=== PATIENT | female | born 1960 | race Caucasian/White ===

== ENCOUNTER 2019-05-14 19:12 | Emergency (ER) | payer BC, SELFPAY ==
--- NOTE | ~2019-05-14 | XR_ITS ---
EXAMINATION: XR chest 2V EXAM DATE: 05/14/2019 20:05 INDICATION: Cough, fever, shortness of breath. TECHNIQUE: Frontal and lateral projections of the chest obtained and reviewed. There is no prior gail dy for comparison. FINDINGS: Left midlung zone granuloma. The lungs are otherwise clear. Moderate chronic hyperinflation . There are no pleural effusions. The cardiomediastinal silhouette is within normal limits. There i s no pneumothorax suspected. The bones and soft tissues are unremarkable. IMPRESSION: No acute cardiopulmonary findings. Reviewed, dictated and finalized at location A. 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
[2019-05-14 20:00] VITALS: BP 162/90; PULSE 93; RESP 20; TEMP 37.6; O2SAT 95
[2019-05-14 20:24] LABS: Influenza Control Valid (Valid)
--- NOTE | 2019-05-14 20:51 | ED.URI ---
HPI - URI/Sore Throat General Chief Complaint: Upper Respiratory Infection Stated Complaint: cough,shortness of breath Time Seen by Provider: 05/14/19 20:30 Source: patient Mode of arrival: ambulatory Limitations: no limitations History of Present Illness HPI Narrative: Lila is a 59-year-old female patient. She presents ambulatory to the emergency room. Her main complaint is a nonproductive cough. She has been wheezing. She is currently a a smoker. She smokes half a pack of cigarettes a day. She has a low-grade temperature of 99.7? F. she has some nasal congestion. No abdominal pain. No chest pain as such. Her ribs hurt upon coughing. No history of vomiting or diarrhea. MD elicited complaint: fever, cough and nasal congestion Onset (ago): day(s) ( Two days) Consistency: intermittent Severity: moderate Exacerbating factors: other ( smoking) Relieving factors: nothing Context: other ( no recent travel. No close sick contacts.) Associated symptoms: fever and nasal congestion Treatments prior to arrival: none Related Data Home Medications Medication Instructions Recorded Confirmed albuterol sulfate [ProAir HFA] 2 puff INHALATION Q4-5H PRN 03/05/19 05/14/19 alprazolam 0.5 mg PO Q6-12H PRN 03/05/19 05/14/19 levothyroxine 100 mcg PO DAILY 03/05/19 05/14/19 Allergies Allergy/AdvReac Type Severity Reaction Status Date / Time hydrocodone Allergy Intermediate rash, Verified 07/28/17 11:48 nausea codeine Allergy Unknown Verified 07/16/17 14:14 morphine Allergy Unknown Verified 07/16/17 14:14 oxycodone Allergy Unknown Verified 07/16/17 14:14 Review of Systems Review of Systems: All systems reviewed & are unremarkable except as noted in HPI and below Constitutional: Constitutional: Reports as per HPI, Reports no additional constitutional complaints, Denies chills and Reports fever(s) Eyes: Eyes: Reports as per HPI, Reports no additional eye complaints and Denies change in vision ENT: Reports system reviewed and no additional complaints, except as documented and Reports nasal congestion Cardiovascular: Cardiovascular: Reports no additional cardiovascular complaints, Denies chest pain and Denies radiating jaw, neck or arm pain Respiratory: Respiratory: Reports as per HPI, Reports no additional respiratory complaints and Reports cough Gastrointestinal: Gastrointestinal: Reports as per HPI, Reports no additional gastrointestinal complaints, Denies abdominal pain, Denies diarrhea, Denies nausea and Denies vomiting Genitourinary: Genitourinary: Reports no additional female genitourinary complaints, Denies hematuria and Denies dysuria Musculoskeletal: Musculoskeletal: Reports no additional musculoskeletal complaints and Denies back pain Integumentary/Breasts: Skin/Breast: Reports system reviewed and no additional complaints, except as docu, Denies erythema and Denies rash Neurologic: Reports system reviewed and no additional complaints, except as documented, Denies vertigo, Denies dizziness, Denies syncope, Denies focal weakness, Denies numbness and Denies weakness Psychiatric: Psychiatric: Reports no additional psychiatric complaints and Reports anxiety Endocrine: Endocrine: Reports no additional endocrine complaints, Denies polydipsia and Denies polyuria Comments: History of hypothyroidism Allergic/Immunologic: Allergic/Immunologic: Reports no additional allergic/immunologic complaints, Denies lip swelling and Denies tongue swelling PMFSH Past Medical History Medical History (Updated 05/14/19 @ 21:44 by Wilder Victor MD) Anxiety Hypothyroidism Surgical History Surgical History (Updated 05/14/19 @ 20:57 by Wilder Victor MD) History of section Hx of cholecystectomy Social History Social History (Updated 05/14/19 @ 20:58 by Wilder Victor MD) Smoking packs per day: 0.5 Smoking cigarettes per day: 10.0 Years smoked: 20 Smoking pack-years: 10.00 Smoking status: Cur
[2019-05-14] MEDS: IPRATROPIUM 0.5 MG/ALBUTEROL SULFATE 2.5 MG AMPUL.NEB 3 ML INHALATION (21:14)
[2019-05-14 21:15] VITALS: PULSE 89
[2019-05-14 21:20] LABS: Hematocrit 38.3 % (35.0-49.0); Hemoglobin 13.4 g/dL (12.0-15.0); Mean Corpuscular Hemoglobin 32.2 pg (27.0-31.0); Mean Corpuscular Volume 92.1 fL (78.0-102.0); Mean Platelet Volume 9.1 fl (9.2-11.8); Platelet Count Result 214 K/mm3 (150-420); Red Blood Count 4.16 M/mm3 (4.20-5.40); White Blood Count 6.9 K/mm3 (4.8-10.8)
[2019-05-14 21:25] VITALS: PULSE 97; RESP 19
[2019-05-14 21:26] LABS: Total Cells Counted 100
[2019-05-14 21:30] LABS: Anion Gap 11.9 mmol/L (7-16); Blood Urea Nitrogen 10 mg/dL (7-18); Calcium 8.4 mg/dL (8.5-10.1); Carbon Dioxide 26 mmol/L (21-32); Chloride 98 mmol/L (98-108); Estimated Glomerular Filt Rate > 60; Glucose 92 mg/dL (70-99); Osmolality Calculated 273 mOsm/kg (285-295); Potassium 3.9 mmol/L (3.5-5.1); Sodium 132 mmol/L (136-145)
[2019-05-14 21:36] LABS: Band Neutrophils Percent 0 % (0-6); Basophils Absolute Manual 0.06 K/mm3 (0-0.1); Basophils Percent Manual 1 % (0-1); Eosinophils Percent Manual 3 % (1-6); Lymphocytes Absolute Manual 1.58 K/mm3 (1.1-4.5); Lymphocytes Percent Manual 23 % (18-44); Monocytes Absolute Manual 1.17 K/mm3 (0.1-0.90); Monocytes Percent Manual 17 % (3-9); Neutrophils Absolute Manual 3.86 K/mm3 (1.7-7.2); Neutrophils Percent Manual 56 % (46-73)
[2019-05-14 21:37] LABS: Platelet Estimate Adequate (Adequate)
[2019-05-14] MEDS: AZITHROMYCIN 250 MG TABLET 500 MG PO (21:59)
[2019-05-14 22:02] VITALS: BP 128/64; O2SAT 99
== END 2019-05-14 22:07 | disposition home or self-care (01) ==
PROVIDERS: Emergency Provider Surgery; PCP Physician Assistant
DX: J40 Bronchitis, not specified as acute or chronic (principal)
CPT/HCPCS: 36415; 71046; 80048; 85025; 87804; 94640; 99283; A9270

== ENCOUNTER 2019-07-23 12:56 | Emergency (ER) | payer BC, SELFPAY ==
--- NOTE | ~2019-07-23 | XR_ITS ---
EXAMINATION: XR hand LT min 3V INDICATION: Left hand pain TECHNIQUE: Three views of the left hand are obtained. COMPARISON: None available FINDINGS: There is dorsal soft tissue swelling of the hand overlying the metacarpals. No fracture, di slocation, or subluxation is identified. Mild osteoarthritis is noted at the first carpometacarpal lesvia int. IMPRESSION: 1. Dorsal soft tissue swelling of the hand without underlying osseous abnormality. Reviewed, dictated and finalized at location A. IMPRESSION: 1. Dorsal soft tissue swelling of the hand without underlying osseous abnormali ty.
--- NOTE | ~2019-07-23 | XR_ITS ---
EXAMINATION: XR wrist LT min 3V DATE: 07/23/2019 13:38 INDICATION: Left wrist pain TECHNIQUE: Posteroanterior, ulnar deviation, oblique, and lateral views of the left wrist were obtain ed. COMPARISON: 03/17/2018 FINDINGS: There is no fracture, dislocation, or subluxation. There is mild osteoarthritis of the firs t carpometacarpal joint. Dorsal soft tissue swelling is noted overlying the metacarpals. IMPRESSION: 1. No acute osseous abnormality. Reviewed, dictated and finalized at location A.
[2019-07-23 13:18] VITALS: BP 112/66; PULSE 79; RESP 18; TEMP 36.9; O2SAT 97
--- NOTE | 2019-07-23 13:28 | ED.UPPEXIN ---
HPI - Extremity Injury (Upper) General Chief Complaint: Extremity Injury, Upper Stated Complaint: injury to L hand Source: patient Mode of arrival: ambulatory Limitations: no limitations History of Present Illness HPI narrative: 59-year-old was moving a refrigerator at 12:30 p.m. today. Her left hand was trapped between a refrigerator in the counter resulting in bleeding and pain in her wrist and hand. She states she is allergic to all pain medications. She declines ice. Immunizations up to date. Related Data Home Medications Medication Instructions Recorded Confirmed albuterol sulfate [ProAir HFA] 2 puff INHALATION Q4-5H PRN 03/05/19 07/23/19 alprazolam 0.5 mg PO Q6-12H PRN 03/05/19 07/23/19 levothyroxine 100 mcg PO DAILY 03/05/19 07/23/19 cephalexin 500 mg PO DAILY 07/23/19 07/23/19 Allergies Allergy/AdvReac Type Severity Reaction Status Date / Time hydrocodone Allergy Intermediate rash, Verified 07/28/17 11:48 nausea codeine Allergy Unknown Verified 07/16/17 14:14 morphine Allergy Unknown Verified 07/16/17 14:14 oxycodone Allergy Unknown Verified 07/16/17 14:14 Review of Systems Constitutional: Constitutional: Denies chills and Denies fever(s) Respiratory: Respiratory: Denies cough and Denies dyspnea Musculoskeletal: Musculoskeletal: Reports no additional musculoskeletal complaints Neurologic: Reports numbness PMFSH Past Medical History Medical History Anxiety Hypothyroidism Surgical History Surgical History History of section Hx of cholecystectomy Social History Social History Smoking packs per day: 0.5 Smoking cigarettes per day: 10.0 Years smoked: 20 Smoking pack-years: 10.00 Smoking status: Current every day smoker Tobacco type: cigarettes Substance use: never Exam Const: Orientation/consciousness: patient oriented x3 Skin: Other: Skin tear dorsum of left hand Extrem: Other: tenderness over the proximal dorsal hand and distal wrist. Pain with flexion and extension. Neurovascular intact Course Course Emergency Course: Wound was cleansed and Steri-Strips applied to the skin tear negative x-rays reported the patient. Vital Signs Vital signs: Vital Signs Temperature 36.9 C 07/23/19 13:18 Pulse Rate 79 07/23/19 13:18 Respiratory Rate 18 07/23/19 13:18 Blood Pressure 112/66 07/23/19 13:18 Pulse Oximetry 97 07/23/19 13:18 Temperature 36.9 C 07/23/19 13:18 Pulse Rate 79 07/23/19 13:18 Respiratory Rate 15 07/23/19 14:55 Blood Pressure 112/66 07/23/19 13:18 Pulse Oximetry 100 07/23/19 14:55 MDM - Extremity Injury (Upper) ABG Data Interpretation: No acute osseous abnormality. Imaging Data Radiologist's impression: 1. Dorsal soft tissue swelling of the hand without underlying osseous abnormality. Discharge Plan Discharge Clinical Impression: Contusion of hand, left, Skin tear of hand without complication Patient Disposition: Home, Self-Care Condition: Stable Instructions: Antibiotic Form, Wrist Injury (ED), Laceration (ED) Prescriptions: No Action levothyroxine 100 mcg tablet 100 mcg PO DAILY RF: 0 alprazolam 0.5 mg tablet 0.5 mg PO Q6-12H PRN (Reason: Anxiety) RF: 0 albuterol sulfate [ProAir HFA] 90 mcg/actuation HFA aerosol inhaler 2 puff INHALATION Q4-5H PRN (Reason: Shortness Of Breath) RF: 0 cephalexin 500 mg capsule 500 mg PO DAILY RF: 0 Follow-up/Referrals: Isaak,MIC Krueger [Primary Care Provider] - Time of Disposition: 14:54 Discharge Date/Time: 07/23/19 14:56
[2019-07-23 14:55] VITALS: RESP 15; O2SAT 100
== END 2019-07-23 14:56 | disposition home or self-care (01) ==
PROVIDERS: Emergency Provider Family Medicine; PCP Physician Assistant
DX: S60.222A Contusion of left hand, initial encounter (principal); S61.412A Laceration without foreign body of left hand, initial encounter; W22.8XXA Striking against or struck by other objects, initial encounter
CPT/HCPCS: 73110; 73130; 99282; 99283

== ENCOUNTER 2020-01-20 17:37 | Outpatient (CLI) | payer BC, SELFPAY ==
--- NOTE | ~2020-01-20 | XR_ITS ---
XR hand RT min 3V DATE: 01/20/2020 17:52 INDICATION: Dog bite of fifth digit. Pain. TECHNIQUE: 3 views COMPARISON: None FINDINGS: There is proximal soft tissue swelling of the fifth digit. No radiopaque foreign body or simpson bcutaneous emphysema. No fracture or dislocation, periosteal reaction or bone destruction. There is mild osteoarthritic change at the first carpometacarpal joint and multiple interphalangeal j oints. 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
== END 2020-01-20 17:38 | disposition home or self-care (01) ==
LOC: CHSIMG 17:39
PROVIDERS: PCP Physician Assistant; Visit Provider Physician Assistant
DX: M79.641 Pain in right hand (principal)
CPT/HCPCS: 73130

== ENCOUNTER 2020-04-24 15:05 | Emergency (ER) | payer BC, SELFPAY ==
--- NOTE | ~2020-04-24 | XR_ITS ---
EXAMINATION: XR chest 1V portable DATE: 04/24/2020 16:18 INDICATION: Cough and shortness of breath TECHNIQUE: Portable AP upright view of the chest was obtained. COMPARISON: Chest radiograph dated 05/14/2019 FINDINGS: Unchanged minimal biapical pleural-parenchymal scarring. Calcified nodules in the left midlung consis tent with old granulomatous disease. No other airspace opacities, pulmonary edema, pleural effusion o r pneumothorax. The cardiomediastinal silhouette is normal. Cholecystectomy clips in right upper quad rant. IMPRESSION: 1. No acute cardiopulmonary disease. Reviewed, dictated and finalized at location A. 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
[2020-04-24 15:10] VITALS: BP 150/87; PULSE 79; RESP 16; TEMP 36.8; O2SAT 96
[2020-04-24] MEDS: ALBUTEROL SULFATE (*SP) INHALER 4 PUFF INHALATION (15:48)
[2020-04-24 15:49] VITALS: PULSE 80; RESP 16
[2020-04-24 15:56] VITALS: PULSE 86; RESP 16
[2020-04-24 16:30] LABS: SARS-CoV-2 Ag Negative (Negative)
[2020-04-24 16:48] LABS: Influenza Control Valid (Valid)
--- NOTE | 2020-04-24 16:50 | ED.URI ---
HPI - URI/Sore Throat General Chief Complaint: Upper Respiratory Infection Stated Complaint: sore throat,cough,headache,a little SOB Source: patient Mode of arrival: ambulatory Limitations: no limitations History of Present Illness HPI Narrative: Pt has been having sore throat body aches and cough. She states this has been going on a couple of days. She has no fevers, but does not feel well. No abdominal sxs. MD elicited complaint: fever and cough Consistency: constant Able to tolerate fluids by mouth: Yes Exacerbating factors: nothing Relieving factors: nothing Associated symptoms: headache, sore throat and shortness of breath Related Data Home Medications Medication Instructions Recorded Confirmed albuterol sulfate [ProAir HFA] 2 puff INHALATION Q4-5H PRN 03/05/19 04/24/20 alprazolam 0.5 mg PO Q6-12H PRN 03/05/19 04/24/20 albuterol sulfate 1.25 mg INHALATION Q4H 04/24/20 04/24/20 levothyroxine 125 mcg PO DAILY 04/24/20 04/24/20 Allergies Allergy/AdvReac Type Severity Reaction Status Date / Time hydrocodone Allergy Intermediate rash, Verified 07/28/17 11:48 nausea codeine Allergy Unknown Verified 07/16/17 14:14 morphine Allergy Unknown Verified 07/16/17 14:14 oxycodone Allergy Unknown Verified 07/16/17 14:14 Review of Systems Constitutional: Constitutional: Reports fatigue and Reports weakness Eyes: Eyes: Reports no additional eye complaints ENT: Reports system reviewed and no additional complaints, except as documented Cardiovascular: Cardiovascular: Reports no additional cardiovascular complaints Respiratory: Respiratory: Reports no additional respiratory complaints Gastrointestinal: Gastrointestinal: Reports no additional gastrointestinal complaints Genitourinary: Genitourinary: Reports no additional female genitourinary complaints Musculoskeletal: Musculoskeletal: Reports no additional musculoskeletal complaints Integumentary/Breasts: Skin/Breast: Reports system reviewed and no additional complaints, except as docu Neurologic: Reports system reviewed and no additional complaints, except as documented Psychiatric: Psychiatric: Reports no additional psychiatric complaints Endocrine: Endocrine: Reports no additional endocrine complaints Hematologic/Lymphatic: Hematologic/Lymphatic: Reports no additional hematologic/lymphatic complaints Allergic/Immunologic: Allergic/Immunologic: Reports no additional allergic/immunologic complaints [facility] Past Medical History Medical History (Updated 04/24/20 @ 16:53 by Lashell Kennedy MD) Anxiety Hypothyroidism Surgical History Surgical History History of section Hx of cholecystectomy Social History Social History Smoking packs per day: 0.5 Smoking cigarettes per day: 10.0 Years smoked: 20 Smoking pack-years: 10.00 Smoking status: Current every day smoker Tobacco type: cigarettes Substance use: never Exam Const: General: no acute distress and alert Orientation/consciousness: patient oriented x3 HENMT: Head: normal to inspection Eyes: Conjunctivae: conjunctivae normal Pupils: Equal, round and reactive pupils present Neck: Neck: normal visual inspection Chest: Chest palpation & inspection: normal inspection of the chest Resp: Effort & Inspection: normal respiratory effort Auscultation: clear to auscultation bilaterally Cardio: Rate: regular rate Rhythm: regular rhythm GI: GI Palp: Yes Soft to palpation and No Tenderness to palpation present (GI) : General: Yes no CVA tenderness Back/Spine/Pelvis: Back: no CVA tenderness Skin: General skin exam: normal color Rashes: no rashes Neuro: General: patient oriented x3 and moves all extremities Extrem: General: normal to inspection Psych: Mental Status: mental status grossly normal Thought content: Yes Normal thought content presen
[2020-04-24 17:10] VITALS: PULSE 80; O2SAT 98
[2020-04-25 23:23] LABS: SARS-CoV-2 RNA PCR Negative
== END 2020-04-24 17:15 | disposition home or self-care (01) ==
PROVIDERS: Emergency Provider Emergency Medicine; PCP Physician Assistant
DX: J40 Bronchitis, not specified as acute or chronic (principal); Z20.822 Contact with and (suspected) exposure to COVID-19; F17.200 Nicotine dependence, unspecified, uncomplicated
CPT/HCPCS: 36415; 71045; 87426; 87804; 94640; 99283; A9270; C9803; U0003; U0005

== ENCOUNTER 2020-05-21 01:43 | Emergency (ER) | payer BC, SELFPAY ==
[2020-05-21 01:45] VITALS: BP 135/90; PULSE 85; RESP 18; TEMP 36.1; O2SAT 97
--- NOTE | 2020-05-21 02:01 | ED.DENTAL ---
HPI - Dental/Oral General Chief complaint: Dental/Oral Stated complaint: PAIN Time Seen by Provider: 05/21/20 01:45 Source: patient and family Mode of arrival: ambulatory History of Present Illness HPI Narrative: Patient states she was eating cereal about twenty minutes ago and noticed that she was swollen at the angle of her jaw on the left side. She had not noticed this prior to that time. Pain there is moderately severe she says. she has not taken anything for it at home. Severity: moderate Relieving factors: nothing Exacerbating factors: chewing Related Data Home Medications Medication Instructions Recorded Confirmed albuterol sulfate [ProAir HFA] 2 puff INHALATION Q4-5H PRN 03/05/19 05/21/20 alprazolam 0.5 mg PO Q6-12H PRN 03/05/19 05/21/20 albuterol sulfate 1.25 mg INHALATION Q4H 04/24/20 05/21/20 levothyroxine 100 mcg PO DAILY 04/24/20 05/21/20 Allergies Allergy/AdvReac Type Severity Reaction Status Date / Time hydrocodone Allergy Intermediate rash, Verified 07/28/17 11:48 nausea codeine Allergy Unknown Verified 07/16/17 14:14 morphine Allergy Unknown Verified 07/16/17 14:14 oxycodone Allergy Unknown Verified 07/16/17 14:14 Review of Systems Constitutional: Constitutional: Reports no additional constitutional complaints Eyes: Eyes: Reports no additional eye complaints ENT: Reports system reviewed and no additional complaints, except as documented Cardiovascular: Cardiovascular: Reports no additional cardiovascular complaints Respiratory: Respiratory: Reports no additional respiratory complaints Gastrointestinal: Gastrointestinal: Reports no additional gastrointestinal complaints Genitourinary: Genitourinary: Reports no additional female genitourinary complaints Musculoskeletal: Musculoskeletal: Reports no additional musculoskeletal complaints Integumentary/Breasts: Skin/Breast: Reports system reviewed and no additional complaints, except as docu Neurologic: Reports system reviewed and no additional complaints, except as documented Psychiatric: Psychiatric: Reports no additional psychiatric complaints Endocrine: Endocrine: Reports no additional endocrine complaints Hematologic/Lymphatic: Hematologic/Lymphatic: Reports no additional hematologic/lymphatic complaints Allergic/Immunologic: Allergic/Immunologic: Reports no additional allergic/immunologic complaints PMFSH Past Medical History Medical History Anxiety Hypothyroidism Surgical History Surgical History History of section Hx of cholecystectomy Family History Family History Mother Breast cancer CAD (coronary artery disease) Social History Social History Smoking packs per day: 0.5 Smoking cigarettes per day: 10.0 Years smoked: 20 Smoking pack-years: 10.00 Smoking status: Current every day smoker Tobacco type: cigarettes Substance use: never Exam Const: General: no acute distress Orientation/consciousness: patient oriented x3 HENMT: Ears: TM's normal bilaterally General nose exam: Normal external nose present and Normal nares present Face and sinus: normal facial exam Mouth: Yes Normal oral and palatal mucosa present (wears dentures. edentulous. no lesions on gums) and Yes moist mucous membranes Throat: posterior oropharynx normal Other: obvious swelling around tonsillar node on left Eyes: Conjunctivae: conjunctivae normal Neck: Neck: normal visual inspection Chest: Chest palpation & inspection: normal inspection of the chest Resp: Effort & Inspection: normal respiratory effort Auscultation: clear to auscultation bilaterally Cardio: Rate: regular rate Rhythm: regular rhythm GI: GI Palp: Yes Soft to palpation (nontender) Skin: General skin exam: normal color Neuro: Genera
[2020-05-21] MEDS: AMOXICILLIN 500 MG CAPSULE PO (02:04)
[2020-05-21 02:05] VITALS: BP 130/88; PULSE 80; RESP 18; O2SAT 97
== END 2020-05-21 02:10 | disposition home or self-care (01) ==
PROVIDERS: Emergency Provider Emergency Medicine; PCP Physician Assistant
DX: R59.1 Generalized enlarged lymph nodes (principal)
CPT/HCPCS: 99283; A9270

== ENCOUNTER 2020-06-23 13:43 | Emergency (ER) | payer BC, SELFPAY ==
[2020-06-23 14:45] VITALS: BP 154/101; PULSE 70; RESP 16; TEMP 36.7; O2SAT 98
[2020-06-23] MEDS: ONDANSETRON HCL ODT 4 MG TABLET PO (15:37)
[2020-06-23] MEDS: BACLOFEN 10 MG TABLET 20 MG PO (15:37)
[2020-06-23] MEDS: KETOROLAC 30 MG/ML VIAL (*BKC) IM (15:38)
--- NOTE | 2020-06-23 15:40 | ED.HA ---
HPI - Headache General Chief Complaint: Headache Stated Complaint: migraine Source: patient Mode of arrival: ambulatory Limitations: no limitations History of Present Illness HPI Narrative: Patient comes in with a headache on the right side of her head, ongoing since last pm. Pain is moderately severe, sharp, pounding and associated with some mild nausea. nothing has made this better or worse at home. Pain is ongoing. MD elicited complaint: headache Onset description: gradually Location: right Severity: moderate Quality & Timing: throbbing Exacerbating factors: exertion Context: occurred at rest Associated symptoms: none Related Data Home Medications Medication Instructions Recorded Confirmed alprazolam 0.5 mg PO Q6-12H PRN 03/05/19 06/23/20 albuterol sulfate 1.25 mg INHALATION Q4H 04/24/20 06/23/20 levothyroxine 100 mcg PO DAILY 04/24/20 06/23/20 Allergies Allergy/AdvReac Type Severity Reaction Status Date / Time hydrocodone Allergy Intermediate rash, Verified 07/28/17 11:48 nausea codeine Allergy Unknown Verified 07/16/17 14:14 morphine Allergy Unknown Verified 07/16/17 14:14 oxycodone Allergy Unknown Verified 07/16/17 14:14 Review of Systems Eyes: Eyes: Reports no additional eye complaints ENT: Reports system reviewed and no additional complaints, except as documented Cardiovascular: Cardiovascular: Reports no additional cardiovascular complaints Respiratory: Respiratory: Reports no additional respiratory complaints Gastrointestinal: Gastrointestinal: Reports no additional gastrointestinal complaints Genitourinary: Genitourinary: Reports no additional female genitourinary complaints Musculoskeletal: Musculoskeletal: Reports no additional musculoskeletal complaints Integumentary/Breasts: Skin/Breast: Reports system reviewed and no additional complaints, except as docu Neurologic: Reports system reviewed and no additional complaints, except as documented Psychiatric: Psychiatric: Reports no additional psychiatric complaints Endocrine: Endocrine: Reports no additional endocrine complaints Hematologic/Lymphatic: Hematologic/Lymphatic: Reports no additional hematologic/lymphatic complaints Allergic/Immunologic: Allergic/Immunologic: Reports no additional allergic/immunologic complaints [facility] Past Medical History Medical History (Updated 06/23/20 @ 16:13 by Marcos Jefferson MD) Anxiety Hypothyroidism Surgical History Surgical History History of section Hx of cholecystectomy Family History Family History Mother Breast cancer CAD (coronary artery disease) Social History Social History Smoking packs per day: 0.5 Smoking cigarettes per day: 10.0 Years smoked: 20 Smoking pack-years: 10.00 Smoking status: Current every day smoker Tobacco type: cigarettes Substance use: never Exam Const: General: no acute distress Orientation/consciousness: patient oriented x3 HENMT: Head: normal to inspection Ears: external ears normal and TM's normal bilaterally General nose exam: Normal external nose present Face and sinus: normal facial exam Mouth: Yes Normal oral and palatal mucosa present Throat: posterior oropharynx normal Eyes: Conjunctivae: conjunctivae normal Neck: Neck: normal visual inspection Chest: Chest palpation & inspection: normal inspection of the chest Resp: Effort & Inspection: normal respiratory effort Auscultation: clear to auscultation bilaterally Cardio: Rate: regular rate Rhythm: regular rhythm GI: GI Palp: Yes Soft to palpation (nontender) Skin: General skin exam: normal color Neuro: General: patient oriented x3 and moves all extremities Extrem: General: normal to inspection Psych: Appearance: grossly normal Mental Status: mental status grossly normal Thought content: Ye
[2020-06-23 16:18] VITALS: BP 143/82
== END 2020-06-23 16:19 | disposition home or self-care (01) ==
PROVIDERS: Emergency Provider Emergency Medicine; PCP Physician Assistant
DX: G43.019 Migraine without aura, intractable, without status migrainosus (principal)
CPT/HCPCS: 96372; 99283; A9270; J1885

== ENCOUNTER 2020-10-27 17:44 | Emergency (ER) | payer BC, SELFPAY ==
--- NOTE | ~2020-10-27 | XR_ITS ---
EXAMINATION: XR chest 2V DATE: 10/27/2020 18:52 INDICATION: Shortness of breath. TECHNIQUE: Frontal and lateral views of the chest were obtained. COMPARISON: Chest single view 04/24/2020, chest CT 05/13/2014 FINDINGS: There are lucencies in the lungs, consistent with emphysema. A calcified left lung nodule i s consistent with old granulomatous disease. No pleural effusion or pneumothorax. The heart size is n ormal. Surgical clips in the right upper quadrant are likely from cholecystectomy. IMPRESSION: 1. Emphysema. Reviewed, dictated and finalized at location A. IMPRESSION: 1. Emphysema.
[2020-10-27 17:57] VITALS: BP 136/86; PULSE 83; RESP 20; TEMP 37; O2SAT 98
[2020-10-27] MEDS: methylPREDNISolone SOD SUCC 125 MG VIAL IV PUSH (18:10)
[2020-10-27 18:32] LABS: Basophils Absolute Auto 0.05 K/mm3 (0.00-0.10); Basophils Percent Auto 0.6 % (0.0-1.0); Eosinophils Percent Auto 4.9 % (1.0-6.0); Hematocrit 34.4 % (35.0-49.0); Hemoglobin 12.1 g/dL (12.0-15.0); Immature Granulocyte Absolute 0.02 K/mm3 (0.00-0.00); Immature Granulocyte Percent A 0.2 % (0.0-0.0); Lymphocytes Percent Auto 29.2 % (18.0-42.0); Mean Corpuscular HGB Conc 35.2 g/dL (32.0-36.0); Mean Corpuscular Hemoglobin 32.3 pg (27.0-31.0); Mean Corpuscular Volume 91.7 fL (78.0-102.0); Mean Platelet Volume 9.2 fl (9.2-11.8); Monocytes Absolute Auto 0.71 K/mm3 (0.10-0.90); Monocytes Percent Auto 8.6 % (2.0-11.0); Neutrophils Absolute Auto 4.6 K/mm3 (1.7-7.2); Neutrophils Percent Auto 56.5 % (50.0-70.0); Platelet Count Result 282 K/mm3 (150-420); Red Blood Count 3.75 M/mm3 (4.20-5.40); Red Cell Distribution Width 11.6 % (11.6-14.4); White Blood Count 8.2 K/mm3 (4.8-10.8)
[2020-10-27 18:34] LABS: SARS-CoV-2 Ag Negative (Negative)
[2020-10-27 18:45] VITALS: PULSE 83; RESP 20; O2SAT 98
[2020-10-27 18:46] LABS: Alanine Aminotransferase 23 U/L (14-59); Albumin Level 3.6 g/dL (3.4-5.0); Alkaline Phosphatase 65 U/L (46-116); Anion Gap 9 mmol/L (8-16); Aspartate Amino Transferase 14 U/L (15-37); Bilirubin,Total 0.2 mg/dL (0.00-1.00); Blood Urea Nitrogen 19 mg/dL (7-18); Calcium 8.7 mg/dL (8.5-10.1); Carbon Dioxide 26 mmol/L (21-32); Chloride 97 mmol/L (98-108); Estimated CRCL calculation 49 ml/min; Estimated Glomerular Filt Rate > 60; Glucose 132 mg/dL (70-99); Osmolality Calculated 278 mOsm/kg (285-295); Sodium 132 mmol/L (136-145); Total Protein 6.9 g/dL (6.4-8.2)
[2020-10-27] MEDS: IPRATROPIUM 0.5 MG/ALBUTEROL SULFATE 2.5 MG AMPUL.NEB 3 ML INHALATION (18:46)
[2020-10-27 18:54] VITALS: PULSE 72; RESP 18; O2SAT 98
--- NOTE | 2020-10-27 18:55 | PCDIET ---
Pt to xray via wheelchair
--- NOTE | 2020-10-27 19:02 | ED.SOB ---
HPI - SOB/Dyspnea General Chief Complaint: Shortness of Breath/Dyspnea Stated Complaint: sob Source: patient Mode of arrival: ambulatory Limitations: no limitations History of Present Illness HPI Narrative: this is 60-year-old female that presents with increasing shortness of breath over the last couple of days not formally diagnosed with emphysema but patient is a smoker and has been a smoker for quite a while, having increasing shortness of breath with no fever chills no cough with audible wheezing no chest pain no nausea vomiting no abdominal pain. MD elicited complaint: shortness of breath Pertinent past history: COPD Onset (ago): day(s) Timing: intermittent Severity: moderate Exacerbating factors: exertion Relieving factors: rest and bronchodilators Known history of: COPD Related Data Home Medications Medication Instructions Recorded Confirmed alprazolam 0.5 mg PO Q6-12H PRN 03/05/19 10/27/20 levothyroxine 100 mcg PO DAILY 04/24/20 10/27/20 Allergies Allergy/AdvReac Type Severity Reaction Status Date / Time hydrocodone Allergy Intermediate rash, Verified 07/28/17 11:48 nausea codeine Allergy Unknown Rash Verified 10/27/20 17:56 morphine Allergy Unknown Rash Verified 10/27/20 17:56 oxycodone Allergy Unknown Rash Verified 10/27/20 17:56 hydromorphone [From Dilaudid] Allergy Nausea and Verified 10/27/20 17:56 Vomiting Review of Systems Review of Systems: All systems reviewed & are unremarkable except as noted in HPI and below PMFSH Past Medical History Medical History (Updated 10/27/20 @ 19:07 by Gene Mtz MD) Anxiety Hypothyroidism Surgical History Surgical History History of section Hx of cholecystectomy Family History Family History Mother Breast cancer CAD (coronary artery disease) Social History Social History Smoking packs per day: 0.5 Smoking cigarettes per day: 10.0 Years smoked: 20 Smoking pack-years: 10.00 Smoking status: Current every day smoker Tobacco type: cigarettes Alcohol use details: does not use alcohol Substance use: never Exam Const: General: no acute distress and alert Orientation/consciousness: patient oriented x3 HENMT: Head: normal to inspection Eyes: Conjunctivae: conjunctivae normal Pupils: Equal, round and reactive pupils present EOM: EOMs intact bilaterally Neck: Neck: normal visual inspection and no lymphadenopathy Chest: Chest palpation & inspection: normal inspection of the chest Resp: Effort & Inspection: normal respiratory effort Auscultation: clear to auscultation bilaterally Cardio: Rate: regular rate Rhythm: regular rhythm GI: Percussion: Yes normal to percussion : General: Yes no CVA tenderness Back/Spine/Pelvis: Back: no CVA tenderness Skin: General skin exam: normal color Rashes: no rashes Neuro: General: patient oriented x3 Extrem: General: normal to inspection and no pedal edema Psych: Mental Status: mental status grossly normal Affect: normal affect Course Course Emergency Course: Reassessment of patient lungs are on improved with a nebulizer and IV steroids patient x-ray and labs reviewed with patient and advised to follow-up with primary care physician. Vital Signs Vital signs: Vital Signs Temperature 37.0 C 10/27/20 17:57 Pulse Rate 83 10/27/20 17:57 Respiratory Rate 20 10/27/20 17:57 Blood Pressure 136/86 10/27/20 17:57 Pulse Oximetry 98 10/27/20 17:57 Temperature 37.0 C 10/27/20 17:57 Pulse Rate 72 10/27/20 18:54 Respiratory Rate 18 10/27/20 18:54 Blood Pressure 136/86 10/27/20 17:57 Pulse Oximetry 98 10/27/20 18:54 MDM - SOB/Dyspnea Lab Data Result diagrams: 10/27/20 18:29 10/27/20 18:29 Labs: Lab Results 10/27/20
[2020-10-27] MEDS: SODIUM CHLORIDE 0.9% IV 500 ML 999 ML IV CONT (19:15)
[2020-10-27 19:54] VITALS: BP 133/80; PULSE 74; RESP 20; TEMP 36.4; O2SAT 100
== END 2020-10-27 19:40 | disposition home or self-care (01) ==
PROVIDERS: Emergency Provider Emergency Medicine; PCP Physician Assistant
DX: J44.1 Chronic obstructive pulmonary disease with (acute) exacerbation (principal)
CPT/HCPCS: 36415; 71046; 80053; 85025; 87040; 87426; 94640; 96374; 99283; 99284; C9803; J2930; J7040

== ENCOUNTER 2021-02-20 16:29 | Outpatient (CLI) | payer BC, SELFPAY ==
[2021-02-20 17:18] LABS: SARS-CoV-2 RNA PCR Negative (Negative)
== END 2021-02-20 16:30 | disposition home or self-care (01) ==
LOC: CHSLAB 16:33
PROVIDERS: PCP Physician Assistant; Visit Provider Physician Assistant
DX: Z20.822 Contact with and (suspected) exposure to COVID-19 (principal)
CPT/HCPCS: C9803; U0003; U0005

== ENCOUNTER 2021-03-15 15:41 | Outpatient (CLI) | payer BC, SELFPAY ==
[2021-03-15 17:47] LABS: SARS-CoV-2 Ag Negative (Negative)
== END 2021-03-15 15:42 | disposition home or self-care (01) ==
LOC: CHSLAB 15:45
PROVIDERS: PCP Physician Assistant; Visit Provider Physician Assistant
DX: B34.9 Viral infection, unspecified (principal); Z20.822 Contact with and (suspected) exposure to COVID-19
CPT/HCPCS: 87426; C9803

== ENCOUNTER 2021-05-15 14:10 | Outpatient (CLI) | payer BC, SELFPAY ==
[2021-05-15 16:24] LABS: SARS-CoV-2 RNA PCR Negative (Negative)
== END 2021-05-15 14:11 | disposition home or self-care (01) ==
LOC: CHSLAB 14:11
PROVIDERS: PCP Physician Assistant; Visit Provider Physician Assistant
DX: Z03.89 Encounter for observation for other suspected diseases and conditions ruled out (principal); Z20.822 Contact with and (suspected) exposure to COVID-19
CPT/HCPCS: C9803; U0003; U0005

== ENCOUNTER 2021-07-10 03:07 | Emergency (ER) | payer BC, SELFPAY ==
--- NOTE | ~2021-07-10 | XR_ITS ---
EXAMINATION: XR chest 1V portable DATE: 07/10/2021 03:46 INDICATION: Shortness of breath TECHNIQUE: frontal view of the chest was obtained. COMPARISON: Chest radiograph dated 10/27/2020 FINDINGS: Calcified nodule in the left midlung zone consistent with old granulomatous disease. No other airspac e opacities, pulmonary edema, pleural effusion or pneumothorax. The cardiomediastinal silhouette is n ormal. Cholecystectomy clips in the right upper quadrant. Visualized bones and soft tissues are unrem arkable. IMPRESSION: 1. No acute cardiopulmonary disease. Reviewed, dictated and finalized at location A.
[2021-07-10 03:10] VITALS: BP 161/83; PULSE 98; RESP 28; TEMP 36.2; O2SAT 94
--- NOTE | 2021-07-10 03:21 | ECG_ITS ---
Measurements Intervals [place] Rate: 93 P: 84 GA: 136 QRS: 64 QRSD: 78 T: 53 QT: 360 QTc: 450 Interpretive Statements SINUS RHYTHM POSSIBLE LEFT ATRIAL ENLARGEMENT BASELINE ARTIFACT- I, II, III, AVR, AVL, AVF BORDERLINE ECG Electronically Signed On 07-10-2021 7:15:51 CDT by Beny Miller D.O.
[2021-07-10] MEDS: IPRATROPIUM 0.5 MG/ALBUTEROL SULFATE 2.5 MG AMPUL.NEB 3 ML INHALATION ×2 (03:22→04:42)
[2021-07-10 03:23] VITALS: PULSE 84; RESP 16; O2SAT 96
--- NOTE | 2021-07-10 03:25 | ED.SOB ---
HPI - SOB/Dyspnea General Chief Complaint: Shortness of Breath/Dyspnea Stated Complaint: SOB Time Seen by Provider: 07/10/21 03:10 Source: patient and RN notes reviewed Mode of arrival: ambulatory Limitations: no limitations History of Present Illness MD elicited complaint: shortness of breath and cough Pertinent past history: COPD Onset (ago): day(s) (2) Context: occurred during exertion Timing: constant and progressively worsening Severity: moderate Exacerbating factors: nothing Relieving factors: oxygen, bronchodilators and upright position Known history of: COPD Associated symptoms: cough and wheezing Treatment prior to arrival: bronchodilator Related Data Home oxygen amount: none Home Medications Medication Instructions Recorded Confirmed alprazolam 0.5 mg PO Q6-12H PRN 03/05/19 07/10/21 levothyroxine 100 mcg PO DAILY 04/24/20 07/10/21 lisinopril 10 mg PO DAILY 07/10/21 07/10/21 Allergies Allergy/AdvReac Type Severity Reaction Status Date / Time hydrocodone Allergy Intermediate rash, Verified 07/28/17 11:48 nausea codeine Allergy Unknown Rash Verified 10/27/20 17:56 morphine Allergy Unknown Rash Verified 10/27/20 17:56 oxycodone Allergy Unknown Rash Verified 10/27/20 17:56 hydromorphone [From Dilaudid] Allergy Nausea and Verified 10/27/20 17:56 Vomiting Review of Systems Review of Systems: All systems reviewed & are unremarkable except as noted in HPI and below PMFSH Past Medical History Medical History Anxiety COPD (chronic obstructive pulmonary disease) Hypothyroidism Surgical History Surgical History History of section Hx of cholecystectomy Family History Family History Mother Breast cancer CAD (coronary artery disease) Social History Social History Smoking packs per day: 0.5 Smoking cigarettes per day: 10.0 Years smoked: 20 Smoking pack-years: 10.00 Smoking status: Current every day smoker Tobacco type: cigarettes Alcohol use details: does not use alcohol Substance use: never Exam Const: General: alert and diaphoretic Orientation/consciousness: patient oriented x3 Limitations: no limitations HENMT: Ears: external ears normal, TM's normal bilaterally and EAC's normal General nose exam: Normal external nose present and Normal nares present Face and sinus: normal facial exam and sinuses nontender Mouth: Yes lip normal and Yes moist mucous membranes Throat: posterior oropharynx normal Eyes: Conjunctivae: conjunctivae normal Pupils: Equal, round and reactive pupils present EOM: EOMs intact bilaterally Neck: Neck: normal visual inspection and no lymphadenopathy Chest: Chest palpation & inspection: normal inspection of the chest Resp: Effort & Inspection: labored, retractions, tachypneic and uses accessory muscles Auscultation: rhonchi and wheezes Cardio: Rate: regular rate Rhythm: regular rhythm GI: GI Palp: Yes Soft to palpation and No Tenderness to palpation present (GI) : General: Yes bladder normal to palpation and Yes no CVA tenderness Back/Spine/Pelvis: Back: no CVA tenderness Skin: General skin exam: normal color Rashes: no rashes Neuro: General: patient oriented x3, moves all extremities, no meningeal signs, no focal motor deficits and CN's II-XI intact bilaterally Extrem: General: normal to inspection and no pedal edema Psych: Mental Status: mental status grossly normal Affect: normal affect Attitude: cooperative Thought content: Yes Normal thought content present Course Course Emergency Course: Pt was stable in the ED, less SOB and wheezing. Reevaluation(s) Date: 07/10/21 Time: 03:03 Vital Signs Vital signs: Vital Signs Temperature 36.2 C L 07/10/21 03:10 Pulse Rate 98 07/10/21 03:
[2021-07-10] MEDS: guaiFENesin 12 HR 600 MG TABCR PO (03:31)
[2021-07-10] MEDS: methylPREDNISolone SOD SUCC 125 MG VIAL IV PUSH (03:31)
[2021-07-10 03:37] VITALS: PULSE 80; RESP 20
[2021-07-10 03:46] LABS: Basophils Absolute Auto 0.06 K/mm3 (0.00-0.10); Basophils Percent Auto 0.5 % (0.0-1.0); Eosinophils Absolute Auto 0.34 K/mm3 (0.02-0.50); Eosinophils Percent Auto 2.7 % (1.0-6.0); Hematocrit 35.5 % (35.0-49.0); Hemoglobin 12.3 g/dL (12.0-15.0); Immature Granulocyte Absolute 0.05 K/mm3 (0.00-0.00); Immature Granulocyte Percent A 0.4 % (0.0-0.0); Lymphocytes Absolute Auto 2.09 K/mm3 (1.10-4.50); Lymphocytes Percent Auto 16.4 % (18.0-42.0); Mean Corpuscular HGB Conc 34.6 g/dL (32.0-36.0); Mean Corpuscular Hemoglobin 33.2 pg (27.0-31.0); Mean Corpuscular Volume 95.7 fL (78.0-102.0); Mean Platelet Volume 9.8 fl (9.2-11.8); Monocytes Absolute Auto 1.03 K/mm3 (0.10-0.90); Monocytes Percent Auto 8.1 % (2.0-11.0); Neutrophils Absolute Auto 9.2 K/mm3 (1.7-7.2); Neutrophils Percent Auto 71.9 % (50.0-70.0); Platelet Count Result 305 K/mm3 (150-420); Red Blood Count 3.71 M/mm3 (4.20-5.40); Red Cell Distribution Width 12.1 % (11.6-14.4); White Blood Count 12.7 K/mm3 (4.8-10.8)
[2021-07-10 03:53] LABS: Add Urine Microscopic? YES; Appearance Urine Clear (Clear); Bilirubin Urine Negative (Negative); Blood Urine Negative (Negative); Color Urine Light Yellow (Yellow); Glucose Urine UA Negative (Negative); Ketones Urine Negative (Negative); Leukocyte Esterase Ur Trace (Negative); Nitrate Urine Negative (Negative); Protein Urine Negative (Negative); Specific Grav Ur <= 1.005 (1.010-1.020); Urobilinogen Urine 0.2 mg/dL (0.2-1.0)
[2021-07-10 03:58] LABS: Bacteria Urine Trace /hpf; RBC Urine 0-2 /hpf (0-2); Squamous Epithelial Cell Urine Rare /hpf (Few); WBC Urine 0-3 /hpf (0-3)
[2021-07-10 04:03] LABS: Alanine Aminotransferase 19 U/L (14-59); Albumin Level 3.5 g/dL (3.4-5.0); Alkaline Phosphatase 80 U/L (46-116); Anion Gap 8 mmol/L (8-16); Aspartate Amino Transferase < 10 U/L (15-37); Bilirubin,Total 0.3 mg/dL (0.00-1.00); Blood Urea Nitrogen 19 mg/dL (7-18); Calcium 8.8 mg/dL (8.5-10.1); Carbon Dioxide 26 mmol/L (21-32); Chloride 100 mmol/L (98-108); Estimated CRCL calculation 43 ml/min; Estimated Glomerular Filt Rate > 60; Glucose 117 mg/dL (70-99); Osmolality Calculated 281 mOsm/kg (285-295); Potassium 4.4 mmol/L (3.5-5.1); Sodium 134 mmol/L (136-145); Total Protein 6.9 g/dL (6.4-8.2); Troponin I 57.1 ng/L (0.00-60.4)
[2021-07-10 04:05] LABS: Lactic Acid Reflex 0.4 mmol/L (0.4-2.0)
[2021-07-10 04:35] VITALS: BP 157/75; PULSE 87; RESP 26; O2SAT 93
[2021-07-10 04:42] VITALS: PULSE 79; RESP 20; O2SAT 95
[2021-07-10 05:31] VITALS: BP 110/70; PULSE 87; RESP 24; TEMP 36.6; O2SAT 96
== END 2021-07-10 05:41 | disposition home or self-care (01) ==
PROVIDERS: Emergency Provider Emergency Medicine; PCP Physician Assistant
DX: J42 Unspecified chronic bronchitis (principal)
CPT/HCPCS: 36415; 71045; 80053; 81001; 83605; 84484; 85025; 93005; 94640; 96365; 96375; 99284; A9270; J0696; J2930

== ENCOUNTER 2021-12-29 17:24 | Emergency (ER) | payer BC, SELFPAY ==
[2021-12-29 17:25] VITALS: BP 152/84; PULSE 81; RESP 16; TEMP 36.9; O2SAT 97
--- NOTE | 2021-12-29 17:46 | ED.GENADULT ---
HPI - General Adult General Chief complaint: Skin/Abscess/Foreign Body Stated complaint: Sept got rash back & head;Wed steroid shot;painful Source: patient Mode of arrival: ambulatory Limitations: no limitations History of Present Illness HPI narrative: PATIENT IS A 61-YEAR-OLD WHITE FEMALE COMPLAINS OF A RASH FOR THE LAST 7 WEEKS WHICH STARTED AFTER SHE WAS CUTTING A POISON [place]. STARTING HER SCALP AND NOW IS ON THE BACK OF HER UPPER BACK IS WORSE LAST FEW DAYS. THREE WEEKS AFTER IT STARTED SHE GOT SOME STEROID CREAM FROM [facility] WHICH HELPED SHE TOOK THAT FOR 1 WEEK. THEN 4 DAYS AGO SHE SAW HER PRIMARY CARE DOCTOR WHO GAVE HER STEROID SHOT WHICH HELPED A LOT FOR 2 DAYS BUT NOW IT IS WORSE. DENIES ANY OTHER RASH NAUSEA VOMITING DIARRHEA PROBLEMS WALKING TALKING CN OR HEARING SORE THROAT RUNNY NOSE OR OTHER SYMPTOMS. MD complaint: RASH Related Data Home Medications Medication Instructions Recorded Confirmed alprazolam 0.5 mg tablet 0.5 mg PO Q6-12H PRN Anxiety 03/05/19 12/29/21 levothyroxine 125 mcg tablet 100 mcg PO DAILY 04/24/20 12/29/21 lisinopril 10 mg tablet 10 mg PO DAILY 07/10/21 12/29/21 Allergies Allergy/AdvReac Type Severity Reaction Status Date / Time hydrocodone Allergy Intermediate rash, Verified 12/29/21 17:34 nausea codeine Allergy Unknown Rash Verified 12/29/21 17:34 morphine Allergy Unknown Rash Verified 12/29/21 17:34 oxycodone Allergy Unknown Rash Verified 12/29/21 17:34 hydromorphone [From Dilaudid] Allergy Nausea and Verified 12/29/21 17:34 Vomiting ketorolac [From Toradol] Allergy Rash Verified 12/29/21 17:34 Review of Systems Review of Systems: All systems reviewed & are unremarkable except as noted in HPI and below Constitutional: Constitutional: Reports no additional constitutional complaints Eyes: Eyes: Reports no additional eye complaints ENT: Reports system reviewed and no additional complaints, except as documented Cardiovascular: Cardiovascular: Reports no additional cardiovascular complaints Respiratory: Respiratory: Reports no additional respiratory complaints Gastrointestinal: Gastrointestinal: Reports no additional gastrointestinal complaints Genitourinary: Genitourinary: Reports no additional female genitourinary complaints Musculoskeletal: Musculoskeletal: Reports no additional musculoskeletal complaints Integumentary/Breasts: Skin/Breast: Reports pruritus, Reports erythema, Reports rash and Denies skin ulcer Neurologic: Reports system reviewed and no additional complaints, except as documented [facility] Past Medical History Medical History Anxiety COPD (chronic obstructive pulmonary disease) Hypothyroidism Surgical History Surgical History History of section Hx of cholecystectomy Family History Family History Mother Breast cancer CAD (coronary artery disease) Social History Social History Smoking packs per day: 0.5 Smoking cigarettes per day: 10.0 Years smoked: 20 Smoking pack-years: 10.00 Smoking status: Current every day smoker Tobacco type: cigarettes Alcohol use details: does not use alcohol Substance use: never Exam Narrative: PATIENT IS A WHITE FEMALE SHE APPEARS IN NO APPARENT DISTRESS HEAD: SHE HAS SMALL AMOUNT OF FLAKING ON OCCIPUT OF HER HEAD. NECK IS SUPPLE NO LYMPHADENOPATHY EYES ARE CLEAR WITH OUT ICTERUS, CONJUNCTIVA ARE PINK OROPHARYNX CLEAR WITH MOIST MUCOUS MEMBRANES LUNGS ARE CLEAR. HEART IS REGULAR RATE RHYTHM WITHOUT MURMURS GALLOPS RUBS. SKIN HER BACK HAS A MACULAR PAPULAR ERYTHEMATOUS RASH WITH SOME EXCORIATIONS ON HER UPPER BACK BILATERALLY. Course Course Emergency Course: EVALUATION PLAN DISCUSSED ALL QUESTIONS WERE ASKED AND ANSWERED. Medical Decision
== END 2021-12-29 18:20 | disposition home or self-care (01) ==
PROVIDERS: Emergency Provider Emergency Medicine; PCP Physician Assistant
DX: L25.9 Unspecified contact dermatitis, unspecified cause (principal)
CPT/HCPCS: 99283

== ENCOUNTER 2022-02-13 21:08 | Emergency (ER) | payer BC, SELFPAY ==
[2022-02-13] VITALS (21 sets, daily range): BP systolic 93–128; BP diastolic 60–77; PULSE 75–108; RESP 12–23; TEMP 36.4–36.7; O2SAT 91–98
--- NOTE | ~2022-02-13 | XR_ITS ---
XR chest 1V portable 02/13/2022 21:40 Indication: Left-sided chest pain and cough. Shortness of breath. Procedure: AP portable chest Comparison: Comparison to multiple prior studies sequentially, with oldest reviewed study dated 09/2019. Findings: There are diffuse bilateral interstitial infiltrates. Heart size normal. Calcified granulom a left lung base. No significant effusion or pneumothorax. Impression: 1: Diffuse bilateral interstitial infiltrates which may represent mild edema or pneumonia. Reviewed, dictated and finalized at location A. CTOR OF PRIMARY Impression: 1: Diffuse bilateral interstitial infiltrates which may represent mild edema or pneumonia.
[2022-02-13] MEDS: IPRATROPIUM 0.5 MG/ALBUTEROL SULFATE 2.5 MG AMPUL.NEB 3 ML INHALATION (21:35)
--- NOTE | 2022-02-13 21:44 | PC.NURSE ---
PT HAS NEB TX IN PROGRESS AT THIS TIME.
[2022-02-13] MEDS: methylPREDNISolone ACETATE 40 MG/ML VIAL 80 MG IM (21:47)
[2022-02-13 21:53] LABS: Basophils Absolute Auto 0.03 K/mm3 (0.00-0.10); Basophils Percent Auto 0.2 % (0.0-1.0); Eosinophils Absolute Auto 0.23 K/mm3 (0.02-0.50); Eosinophils Percent Auto 1.7 % (1.0-6.0); Hematocrit 34.5 % (35.0-49.0); Hemoglobin 11.7 g/dL (12.0-15.0); Immature Granulocyte Absolute 0.05 K/mm3 (0.00-0.00); Immature Granulocyte Percent A 0.4 % (0.0-0.0); Lymphocytes Absolute Auto 1.55 K/mm3 (1.10-4.50); Lymphocytes Percent Auto 11.3 % (18.0-42.0); Mean Corpuscular HGB Conc 33.9 g/dL (32.0-36.0); Mean Corpuscular Hemoglobin 32.4 pg (27.0-31.0); Mean Corpuscular Volume 95.6 fL (78.0-102.0); Mean Platelet Volume 9.6 fl (9.2-11.8); Monocytes Absolute Auto 1.12 K/mm3 (0.10-0.90); Monocytes Percent Auto 8.2 % (2.0-11.0); Neutrophils Absolute Auto 10.7 K/mm3 (1.7-7.2); Neutrophils Percent Auto 78.2 % (50.0-70.0); Platelet Count Result 250 K/mm3 (150-420); Red Blood Count 3.61 M/mm3 (4.20-5.40); Red Cell Distribution Width 11.9 % (11.6-14.4); White Blood Count 13.7 K/mm3 (4.8-10.8)
--- NOTE | 2022-02-13 21:59 | PC.NURSE ---
PT IS AWAITING RESULTS AT THIS TIME. PT IS RESTING ON STRETCHER WITHOUT DISTRESS. WILL CONTINUE TO MONITOR.
[2022-02-13 22:12] LABS: Lactic Acid Reflex 0.5 mmol/L (0.4-2.0)
[2022-02-13 22:16] LABS: Alanine Aminotransferase 16 U/L (14-59); Albumin Level 3.2 g/dL (3.4-5.0); Alkaline Phosphatase 71 U/L (46-116); Anion Gap 8 mmol/L (8-16); Aspartate Amino Transferase 13 U/L (15-37); Bilirubin,Total 0.3 mg/dL (0.00-1.00); Blood Urea Nitrogen 21 mg/dL (7-18); Calcium 8.4 mg/dL (8.5-10.1); Carbon Dioxide 27 mmol/L (21-32); Chloride 105 mmol/L (98-108); Estimated CRCL calculation 41 ml/min; Estimated Glomerular Filt Rate > 60; Glucose 100 mg/dL (70-99); Osmolality Calculated 293 mOsm/kg (285-295); Potassium 3.9 mmol/L (3.5-5.1); Sodium 140 mmol/L (136-145); Total Protein 6.8 g/dL (6.4-8.2)
[2022-02-13 22:30] LABS: Influenza A QL RT-PCR Negative (Negative); Influenza B QL RT-PCR Negative (Negative); SARS-CoV-2 RNA PCR Negative (Negative)
--- NOTE | 2022-02-13 23:13 | ED.URI ---
HPI - URI/Sore Throat General Chief Complaint: Upper Respiratory Infection Stated Complaint: cough, left side of chest pain Time Seen by Provider: 02/13/22 21:10 Source: patient Mode of arrival: ambulatory Limitations: no limitations History of Present Illness HPI Narrative: this is a 61-year-old female with a history of COPD presents with 2 day history of increasing shortness of breath cough congestion with no fever chills has history of COPD has nebulizers at home, there is no chest pain no chest pressure no nausea vomiting no abdominal pain cough is mildly productive with no flank pain no abdominal pain no dysuria. MD elicited complaint: cough Onset (ago): day(s) Severity: mild Related Data Home Medications Medication Instructions Recorded Confirmed alprazolam 0.5 mg tablet 0.5 mg PO Q6-12H PRN Anxiety 03/05/19 02/13/22 levothyroxine 125 mcg tablet 67.5 mcg PO DAILY 04/24/20 02/13/22 lisinopril 10 mg tablet 5 mg PO DAILY 07/10/21 02/13/22 Allergies Allergy/AdvReac Type Severity Reaction Status Date / Time hydrocodone Allergy Intermediate rash, Verified 02/13/22 21:31 nausea codeine Allergy Unknown Rash Verified 02/13/22 21:31 morphine Allergy Unknown Rash Verified 02/13/22 21:31 oxycodone Allergy Unknown Rash Verified 02/13/22 21:31 hydromorphone [From Dilaudid] Allergy Nausea and Verified 02/13/22 21:31 Vomiting ketorolac [From Toradol] Allergy Rash Verified 02/13/22 21:31 Review of Systems Review of Systems: All systems reviewed & are unremarkable except as noted in HPI and below PMFSH Past Medical History Medical History Anxiety COPD (chronic obstructive pulmonary disease) Hypothyroidism Surgical History Surgical History History of section Hx of cholecystectomy Family History Family History Mother Breast cancer CAD (coronary artery disease) Social History Social History Smoking packs per day: 0.5 Smoking cigarettes per day: 10.0 Years smoked: 20 Smoking pack-years: 10.00 Smoking status: Current every day smoker Tobacco type: cigarettes Alcohol use details: does not use alcohol Substance use: never Exam Const: General: healthy appearing and no acute distress Nutritional Appearance: well nourished Limitations: no limitations HENMT: Head: normal to inspection Face and sinus: normal facial exam Mouth: Yes Normal oral and palatal mucosa present Eyes: Conjunctivae: conjunctivae normal EOM: EOMs intact bilaterally Neck: Neck: normal visual inspection Chest: Chest palpation & inspection: normal inspection of the chest Resp: Effort & Inspection: normal respiratory effort Cardio: Rate: regular rate GI: GI Palp: Yes Soft to palpation Auscultation: normal bowel sounds : General: Yes bladder normal to palpation Urinary Catheter: Urinary Catheter: patent and draining Back/Spine/Pelvis: Back: no CVA tenderness Skin: Rashes: no rashes Neuro: General: patient oriented x3 and moves all extremities Extrem: General: normal to inspection Psych: Mental Status: mental status grossly normal Course Course Emergency Course: Shortness of breath has improved after DuoNebs and Depo-Medrol. X-ray reviewed with patient. Vital Signs Vital signs: Vital Signs Temperature 36.4 C L 02/13/22 21:10 Pulse Rate 86 02/13/22 21:10 Respiratory Rate 16 02/13/22 21:10 Blood Pressure 128/75 02/13/22 21:10 Pulse Oximetry 96 02/13/22 21:10 Oxygen Delivery Room Air 02/13/22 21:10 Temperature 36.4 C L 02/13/22 21:10 Pulse Rate 84 02/13/22 21:46 Respiratory Rate 16 02/13/22 21:46 Blood Pressure 128/75 02/13/22 21:10 Pulse Oximetry 98 02/13/22 21:46 Oxygen Delivery Room Air 02/13/22 21:10 MDM
[2022-02-13] MEDS: cefTRIAXone 1 GM, LIDOCAINE HCL 1% LOCAL INJ 2.1 ML IM (23:22)
== END 2022-02-13 23:32 | disposition home or self-care (01) ==
PROVIDERS: Emergency Provider Emergency Medicine; PCP Physician Assistant
DX: J18.9 Pneumonia, unspecified organism (principal); Z20.822 Contact with and (suspected) exposure to COVID-19
CPT/HCPCS: 36415; 71045; 80053; 83605; 85025; 87040; 87636; 94640; 96372; 99284; J0696; J1030

== ENCOUNTER 2022-05-15 16:45 | Emergency (ER) | payer BC, SELFPAY ==
--- NOTE | ~2022-05-15 | XR_ITS ---
EXAMINATION: XR hand LT min 3V DATE: 05/15/2022 17:56 INDICATION: Work injury with small puncture wound at the left hand TECHNIQUE: Posteroanterior, oblique and lateral views of the left hand were obtained. COMPARISON: 07/23/2019 FINDINGS: Alignment is normal. No fracture. Typical pattern of mild polyarticular osteoarthritis at the triscap he, first carpometacarpal and multiple metacarpophalangeal and interphalangeal joints with distal int erphalangeal joint predominance. Soft tissues are unremarkable. No radiopaque foreign bodies. IMPRESSION: 1. Mild polyarticular osteoarthritis with typical distribution. No acute osseous abnormality or radi opaque foreign bodies. Reviewed, dictated and finalized at location A. WOOD [employer]ER IMPRESSION: 1. Mild polyarticular osteoarthritis with typical distribution. No acute osseou s abnormality or radiopaque foreign bodies.
[2022-05-15 16:54] VITALS: BP 130/94; PULSE 77; RESP 16; TEMP 36.7; O2SAT 100
--- NOTE | 2022-05-15 18:11 | ED.UPPEXIN ---
HPI - Extremity Injury (Upper) General Chief Complaint: Extremity Injury, Upper Stated Complaint: injured hand Time Seen by Provider: 05/15/22 17:43 Source: patient Mode of arrival: ambulatory Limitations: no limitations History of Present Illness HPI narrative: patient presents with left hand injury after she was at work and a box fell on her left hand causing pain and mild swelling and tenderness with palpation has good range of motion although limited because of pain and swelling. complaint: injury to: left Onset (ago): hour(s) Other Extremity Injury: Left: hand ( Tender and swollen) Handedness: right Place: work Severity: moderate Severity scale (1-10): 6 Relieving factors: rest Exacerbating factors: movement of extremity Context: direct blow Related Data Home Medications Medication Instructions Recorded Confirmed alprazolam 0.5 mg tablet 0.5 mg PO Q6-12H PRN Anxiety 03/05/19 05/15/22 levothyroxine 125 mcg tablet 67.5 mcg PO DAILY 04/24/20 05/15/22 lisinopril 10 mg tablet 5 mg PO DAILY 07/10/21 05/15/22 Allergies Allergy/AdvReac Type Severity Reaction Status Date / Time hydrocodone Allergy Intermediate rash, Verified 05/15/22 16:58 nausea codeine Allergy Unknown Rash Verified 05/15/22 16:58 morphine Allergy Unknown Rash Verified 05/15/22 16:58 oxycodone Allergy Unknown Rash Verified 05/15/22 16:58 hydromorphone [From Dilaudid] Allergy Nausea and Verified 05/15/22 16:58 Vomiting ketorolac [From Toradol] Allergy Rash Verified 05/15/22 16:58 Review of Systems Review of Systems: All systems reviewed & are unremarkable except as noted in HPI and below PMFSH Past Medical History Medical History Anxiety COPD (chronic obstructive pulmonary disease) Hypothyroidism Surgical History Surgical History History of section Hx of cholecystectomy Family History Family History Mother Breast cancer CAD (coronary artery disease) Social History Social History Smoking packs per day: 0.5 Smoking cigarettes per day: 10.0 Years smoked: 20 Smoking pack-years: 10.00 Smoking status: Current every day smoker Tobacco type: cigarettes Alcohol use details: does not use alcohol Substance use: never Living arrangements: with family Exam Const: General: healthy appearing Nutritional Appearance: well nourished Orientation/consciousness: patient oriented x3 Limitations: no limitations HENMT: Head: normal to inspection Ears: external ears normal Mouth: Yes Normal oral and palatal mucosa present Teeth and gingiva: dentition normal Throat: posterior oropharynx normal Eyes: Conjunctivae: conjunctivae normal Pupils: Equal, round and reactive pupils present EOM: EOMs intact bilaterally Neck: Neck: normal visual inspection, no lymphadenopathy and no meningeal signs Chest: Chest palpation & inspection: normal inspection of the chest Resp: Effort & Inspection: normal respiratory effort Cardio: Rate: regular rate Rhythm: regular rhythm GI: GI Palp: Yes Soft to palpation : General: Yes bladder normal to palpation Urinary Catheter: Urinary Catheter: patent and draining Skin: General skin exam: normal color Neuro: General: patient oriented x3 Extrem: Other: Tender swollen anterior left hand Psych: Mental Status: mental status grossly normal Affect: normal affect Course Course Emergency Course: patient has numerous allergies to pain medication advised Rajesh wrap and take Tylenol or Motrin at home as needed and x-ray reviewed which shows no acute fractures. Vital Signs Vital signs: Vital Signs Temperature 36.7 C 05/15/22 16:54 Pulse Rate 77 05/15/22 16:54 Respiratory Rate 16 05/15/22 16:54 Blood Pressure 130/94 H 05/15/22 16:54
[2022-05-15 18:23] VITALS: BP 128/88; PULSE 77; RESP 18; TEMP 36.7; O2SAT 100
== END 2022-05-15 18:24 | disposition home or self-care (01) ==
PROVIDERS: Emergency Provider Emergency Medicine; PCP Physician Assistant
DX: S63.92XA Sprain of unspecified part of left wrist and hand, initial encounter (principal); J44.9 Chronic obstructive pulmonary disease, unspecified; E03.9 Hypothyroidism, unspecified; F41.9 Anxiety disorder, unspecified; F17.210 Nicotine dependence, cigarettes, uncomplicated; W22.8XXA Striking against or struck by other objects, initial encounter; Y99.0 Civilian activity done for income or pay
CPT/HCPCS: 73130; 99283

== ENCOUNTER 2022-05-19 13:44 | Outpatient (CLI) | payer OTHER, SELFPAY ==
--- NOTE | ~2022-05-19 | XR_ITS ---
EXAM: XR hand LT min 3V DATE: 05/19/2022 14:05 HISTORY: PAIN IN L HAND THRU METACARPALS,CRUSHING INJURY X5DAYS AGO . COMPARISON: 05/15/2022. FINDINGS: Normal mineralization. No fracture or dislocation. No lytic or blastic lesion. Mild polyar ticular osteoarthritis. No erosion or periosteal change. Soft tissues within normal limits. IMPRESSION: No acute osseous finding in the left hand. Reviewed, dictated and finalized at location K.
== END 2022-05-19 13:45 | disposition home or self-care (01) ==
LOC: CHSLAB 13:48
PROVIDERS: PCP Physician Assistant; Visit Provider Physician Assistant
DX: M79.642 Pain in left hand (principal)
CPT/HCPCS: 73130